=== PATIENT | female | born 1950 | race Caucasian/White ===

== ENCOUNTER → 2017-02-16 | Outpatient (CLI) | payer BC | LOC: MC.RAD 07:57 | DX: Z12.31 Encounter for screening mammogram for malignant neoplasm of breast (principal) ==

== ENCOUNTER → 2018-02-19 | Outpatient (CLI) | payer BC | LOC: MC.RAD 06:55 | DX: Z12.31 Encounter for screening mammogram for malignant neoplasm of breast (principal) ==

== ENCOUNTER → 2019-02-15 | Outpatient (CLI) | payer BC | LOC: MC.RAD 08:30 | DX: Z12.31 Encounter for screening mammogram for malignant neoplasm of breast (principal) ==

== ENCOUNTER → 2020-03-01 | Outpatient (CLI) | payer BC | LOC: MC.RAD 07:46 | DX: Z12.31 Encounter for screening mammogram for malignant neoplasm of breast (principal) ==

== ENCOUNTER → 2021-03-04 | Outpatient (CLI) | payer BC | LOC: MC.RAD 08:35 | DX: Z12.31 Encounter for screening mammogram for malignant neoplasm of breast (principal) ==

== ENCOUNTER → 2022-03-05 | Outpatient (CLI) | payer MEDICARE, BC | LOC: MC.RAD 08:09 | DX: Z12.31 Encounter for screening mammogram for malignant neoplasm of breast (principal) ==

== ENCOUNTER → 2024-03-15 | Outpatient (CLI) | payer MEDICARE, BC | LOC: MC.RAD 08:59 | DX: Z12.31 Encounter for screening mammogram for malignant neoplasm of breast (principal) ==